=== PATIENT | male | born 1980 | race African-American/Black ===

== ENCOUNTER 2018-12-19 04:23 | Emergency (ER) | payer MEDICAID ==
[~2018-12-19] VITALS: Ht 182.9 cm; Wt 84.8 kg
[2018-12-19] MEDS ORDERED: GABAPENTIN100 MG ORAL (04:34)
--- NOTE | 2018-12-19 04:37 | NUR ---
ED Nurse Note: pt walked in to ED C/O fluid filled scattered blister to his right torso area. it has been going on for 4 days. Pt is Alert x4. VSS
[2018-12-19 04:38] VITALS: BP 112/75
[2018-12-19] MEDS ORDERED: VALACYCLOVIR500 MG ORAL (04:41)
[2018-12-19] MEDS ORDERED: NORCO 5-325 TA1 EACH ORAL (04:41)
--- NOTE | 2018-12-19 04:41 | Emergency Room Report ---
History of Present Illness General Chief Complaint: shingles Source: Patient Present Illness HPI 38-year-old male history of HIV CD4 greater than 600 presents with rash right lower back right abdomen, follows dermatomal pattern, no aggravating relieving factors severity is severe, constant Allergies: Coded Allergies: No Known Allergies (Unverified , 12/19/18) Patient History Past Medical History: see triage record Reviewed Nursing Documentation: PMH: Agreed; PSxH: Agreed Review of Systems All Other Systems: negative except mentioned in HPI Physical Exam General Appearance: well appearing, no apparent distress Head: normocephalic, atraumatic ENT: hearing grossly normal, normal voice Neck: full range of motion, supple Respiratory: no respiratory distress, speaking full sentences Neurologic: alert, normal gait Skin: rash - T10 dermatome right side, vesicular rash present Medical Decision Making Diagnostic Impression: Primary Impression: Shingles Qualified Codes: B02.9 - Zoster without complications ER Course Patient with shingles will provide patient with Valtrex cures report ran Disposition home with return precautions Disposition: HOME, SELF-CARE Condition: Stable Scripts Hydrocodone Bit/Acetaminophen 5-325* (NORCO 5-325*) 1 Each Tablet 1 TAB ORAL Q6H PRN for For Pain, #12 TAB 0 Refills Prov: Theron Waldrop MD 12/19/18 Valacyclovir Hcl* (VALTREX*) 500 Mg Tablet 1000 MG ORAL Q8H for 7 Days, #42 TAB Prov: Theron Waldrop MD 12/19/18 Referrals: [facility] Patient Instructions: Shingles, [id number] Additional Instructions: The patient was provided with discharge instructions, notified to follow-up with a primary care doctor and or specialist in the next 24-48 hours, and to return to the ED if they have worsening of their symptoms. Please note that this report is being documented using [employer] technology. This can lead to erroneous entry secondary to incorrect interpretation by the dictating instrument. Theron Waldrop MD Dec 19, 2018 04:41
[2018-12-19] MEDS ORDERED: HYDROcodone/Acetamin 5/325 tab ORAL ONE (04:45)
[2018-12-19 04:49] VITALS: BP 112/70
== END 2018-12-19 04:49 | disposition home or self-care (01) ==
LOC: EMR 04:30
DX: B02.9 Zoster without complications (principal)
CPT/HCPCS: 99282

== ENCOUNTER 2018-12-23 04:05 | Emergency (ER) | payer MEDICAID ==
[~2018-12-23] VITALS: Ht 175.3 cm; Wt 84.8 kg
[~2018-12-23 04:05] MED LIST: GABAPENTIN100 MG ORAL; NORCO 5-325 TA1 EACH ORAL; VALACYCLOVIR500 MG ORAL
--- NOTE | 2018-12-23 04:10 | NUR ---
ED Nurse Note: Patient presents with complaints of shingles, occurring at his right side and back.
[2018-12-23 04:24] VITALS: BP 104/67
[2018-12-23] MEDS ORDERED: HYDROmorphone 1mg/ml Carpuject IM ONE (04:30)
[2018-12-23] MEDS ORDERED: BACTRIM DS TAB1 EAC1 ORAL (04:33)
[2018-12-23] MEDS ORDERED: GABAPENTIN300 MG ORAL (04:33)
[2018-12-23] MEDS ORDERED: PERCOCET 5-3251 EACH ORAL (04:33)
--- NOTE | 2018-12-23 04:34 | Emergency Room Report ---
History of Present Illness General Chief Complaint: Pain Source: Patient Present Illness HPI This is a 38-year-old male with history of HIV. CD4 count is around 600. Viral load was undetectable. He was seen here couple days ago with shingles. He was given [place] and Valtrex. He said the last 2 days he is been having pain. Subjective fever. Unable to sleep because of the pain. Out of [place]. Pain is 9 out of 10. His rashes to the right aspect of his back and to the chest area. No nausea no vomiting. Pain is 9 out of 10. Nothing made it better. Nothing made it worse. Denies any other complaint. Allergies: Coded Allergies: No Known Allergies (Unverified , 12/19/18) Patient History Past Medical History: see triage record, old chart reviewed, HIV Past Surgical History: other Pertinent Family History: none Social History: Denies: smoking Immunizations: other Reviewed Nursing Documentation: PMH: Agreed; PSxH: Agreed Nursing Documentation-PMH Past Medical History: No History, Except For Hx Asthma: Yes Review of Systems Eye: Denies: eye pain, blurred vision ENT: Denies: ear pain, nose congestion, throat swelling Respiratory: Denies: cough, shortness of breath Cardiovascular: Denies: chest pain, palpitations Gastrointestinal: Denies: abdominal pain, diarrhea, nausea, vomiting Musculoskeletal: Denies: back pain, joint pain Skin: Reports: rash Neurological: Denies: headache, numbness Endocrine: Denies: increased thirst, increased urine Hematologic/Lymphatic: Denies: easy bruising All Other Systems: negative except mentioned in HPI Physical Exam Vital Signs Date Time Temp Pulse Resp B/P (MAP) Pulse Ox O2 Delivery O2 Flow Rate FiO2 12/23/18 04:10 98.2 110 18 104/67 (79) 92 Room Air Vitals with tachycardia Sp02 EP Interpretation: reviewed, normal General Appearance: well appearing, no apparent distress, alert Head: normocephalic, atraumatic Eyes: bilateral eye PERRL, bilateral eye EOMI ENT: hearing grossly normal, normal pharynx Neck: full range of motion, supple, no meningismus Respiratory: chest non-tender, lungs clear, normal breath sounds Cardiovascular #1: regular rate, rhythm, no murmur Gastrointestinal: normal bowel sounds, non tender, no mass, no organomegaly, no bruit, non-distended Musculoskeletal: back normal, gait/station normal, normal range of motion Neurologic: alert, oriented x3 Psychiatric: mood/affect normal Skin: other - Vesicular lesions around the T6-T7 distribution. There is some surrounding erythema. Medical Decision Making Diagnostic Impression: Primary Impression: Shingles Qualified Codes: B02.8 - Zoster with other complications Additional Impression: Acute herpes zoster neuropathy ER Course This patient presents with shingles and neuropathy. May have secondary skin infection. We will go ahead and put him on antibiotics. No evidence of any crepitance. No evidence of necrotizing fasciitis or abscess. Will discharge home. Last Vital Signs Date Time Temp Pulse Resp B/P (MAP) Pulse Ox O2 Delivery O2 Flow Rate FiO2 12/23/18 04:24 98.2 87 18 104/67 92 Room Air Status: improved Disposition: HOME, SELF-CARE Condition: Stable Scripts Trimethoprim/Sulfamethoxazole 160/800* (BACTRIM DS TABLET*) 1 Each Tablet 1 TAB ORAL Q12H, #14 TAB 0 Refills Prov: Bennett Hagen MD 12/23/18 Gabapentin* (GABAPENTIN*) 300 Mg Capsule 300 MG ORAL THREE TIMES A DAY, #21 CAP 0 Refills Prov: Bennett Hagen MD 12/23/18 Oxycodone/Acetaminophen 5-325* (PERCOCET 5-325 MG TABLET*) 1 Each Tablet 1 TAB ORAL Q6H PRN for For Pain, #30 TAB Prov: Bennett Hagen MD 12/23/18 Additional Instructions: Follow-up with your doctor in 7 days for recheck. Return if worse. Bennett Hagen MD Dec 23, 2018 04:34
--- NOTE | 2018-12-23 04:38 | NUR ---
ED Nurse Note: Patient tolerated medication administration well. Patient cleared for discharge by ERMD. Patient is A&Ox4, has no s/s of acute distress and is ambulatory with steady gait. Patient verbalized understanding of discharge instruction and departed with all belongings. Patient will be taking an Uber home.
[2018-12-23 04:41] VITALS: BP 104/67
== END 2018-12-23 04:42 | disposition home or self-care (01) ==
LOC: EMR 04:30
DX: B02.23 Postherpetic polyneuropathy (principal); J45.909 Unspecified asthma, uncomplicated; B20 Human immunodeficiency virus [HIV] disease
CPT/HCPCS: 96372; J1170; Z7502; 99283

== ENCOUNTER 2019-02-08 23:41 | Emergency (ER) | payer MEDICAID, OTHER ==
[~2019-02-08] VITALS: Ht 175.3 cm; Wt 81.6 kg
[~2019-02-08 23:41] MED LIST changes: +BACTRIM DS TAB1 EAC1 ORAL; +GABAPENTIN300 MG ORAL; +PERCOCET 5-3251 EACH ORAL
[2019-02-09 00:10] VITALS: BP 101/69
--- NOTE | 2019-02-09 00:10 | NUR ---
ED Nurse Note: Patient walked in c/o pain from shingles on abdomen for past 2 months. Pt was seen here and got treated but now s/s return. Afebrile. No SOB. Breathing even and unlabored. VSS.
--- NOTE | 2019-02-09 00:13 | NUR ---
ED Nurse Note: ERMD at bedside.
--- NOTE | 2019-02-09 00:29 | Emergency Room Report ---
History of Present Illness General Chief Complaint: General Complaint Source: Patient Present Illness HPI Patient is a 38-year-old male presented after increased skin rash. He had prior episodes of shingles. He did have episode of shingles several months ago. This had mostly resolved however he continued to have some itchiness to the area. He reports having significant pain to the locations of previous episode. Denies any recent other locations of outbreak. He had previous been taking valacyclovir as well as gabapentin. Allergies: Coded Allergies: No Known Allergies (Unverified , 02/09/19) Patient History Past Medical History: see triage record Reviewed Nursing Documentation: PMH: Agreed; PSxH: Agreed Nursing Documentation-PMH Hx Asthma: Yes Review of Systems All Other Systems: negative except mentioned in HPI Physical Exam Vital Signs Date Time Temp Pulse Resp B/P (MAP) Pulse Ox O2 Delivery O2 Flow Rate FiO2 02/09/19 00:00 98.6 96 16 101/69 (80) 96 Room Air Sp02 EP Interpretation: reviewed, normal General Appearance: normal inspection, well appearing, no apparent distress, alert, GCS 15 Head: atraumatic ENT: normal ENT inspection, hearing grossly normal, normal voice Neck: normal inspection, full range of motion, supple, no bony tend Respiratory: normal inspection, lungs clear, normal breath sounds, no respiratory distress, no retraction, no wheezing Cardiovascular #1: regular rate, rhythm, no edema Gastrointestinal: normal inspection, normal bowel sounds, non tender, soft, no guarding, no hernia Genitourinary: no CVA tenderness Musculoskeletal: normal inspection, back normal, normal range of motion Neurologic: normal inspection, alert, responsive, speech normal Psychiatric: normal inspection, judgement/insight normal, mood/affect normal Skin: other - Mostly healed vesicular lesions with scarring to the right side of the chest wall and dermatomal distribution. There is some areas of excoriation. Medical Decision Making Diagnostic Impression: Primary Impression: Dermatitis ER Course Patient presented for skin rash. Differential diagnosis include was not limited to allergic reaction, lichen simplex chronicus, contact dermatitis among others. Patient appears to have some skin rash. He does not appear to be any acute distress.Patient appears to be stable for outpatient management. He will be given prescription for medications for antihistamines as well as oral acyclovir.He will be given a prescription for gabapentin as well. He is advised to follow-up with his infectious disease doctor for recheck.Patient advised to return if worse. Last Vital Signs Date Time Temp Pulse Resp B/P (MAP) Pulse Ox O2 Delivery O2 Flow Rate FiO2 02/09/19 00:10 96 16 Room Air 02/09/19 00:10 98.6 101/69 96 Status: improved Disposition: HOME, SELF-CARE Condition: Stable Scripts Gabapentin* (GABAPENTIN*) 300 Mg Capsule 300 MG ORAL THREE TIMES A DAY, #30 CAP 0 Refills Prov: Quoc Terry MD 02/09/19 Hydroxyzine HCl (Hydroxyzine HCl) 25 Mg Tablet 25 MG ORAL FOUR TIMES A DAY, #30 TAB Prov: Quoc Terry MD 02/09/19 Valacyclovir Hcl* (VALTREX*) 500 Mg Tablet 1000 MG ORAL EVERY 8 HOURS, #42 TAB Prov: Quoc Terry MD 02/09/19 Quoc Terry MD Feb 09, 2019 00:29
[2019-02-09] MEDS ORDERED: VALACYCLOVIR500 MG ORAL (00:32)
[2019-02-09] MEDS ORDERED: ATARAX25 MG ORAL (00:32)
[2019-02-09] MEDS ORDERED: GABAPENTIN300 MG ORAL (00:32)
[2019-02-09 00:43] VITALS: BP 101/69
--- NOTE | 2019-02-09 00:43 | NUR ---
ED Nurse Note: Pt cleared by ERMD for discharge. DC instructions/prescription was given and explained to pt and verbalized understanding of teachings. All medical deviecs such as ID band removed. Pt is AAO x4, ambulatory and left with all personal belongings.
== END 2019-02-09 00:43 | disposition home or self-care (01) ==
LOC: EMR 02-09 00:30
DX: L30.9 Dermatitis, unspecified (principal)
CPT/HCPCS: 99282

== ENCOUNTER 2019-06-01 11:56 | Emergency (ER) | payer OTHER ==
[~2019-06-01] VITALS: Ht 175.3 cm; Wt 77.1 kg
[~2019-06-01 11:56] MED LIST changes: +ATARAX25 MG ORAL
--- NOTE | 2019-06-01 12:17 | NUR ---
ED Nurse Note: Pt has had "bone pain" 10/10 in general body. Pt states he also has cough, congestion, sore throat x2 months. Pt lungs are clear to auscultation. Pt has history of asthma. Pt also has pelvic rash for 3 months in perineal area. Pt is alert and orientedx4, ambulatory. Pt was born with HIV.
[2019-06-01 12:22] VITALS: BP 132/80
--- NOTE | 2019-06-01 12:46 | Emergency Room Report ---
History of Present Illness General Chief Complaint: General Complaint Source: Patient (Galdino Cagle MD) Present Illness HPI Disclaimer: Please note that this report is being documented using [employer] technology. This can lead to erroneous entry secondary to incorrect interpretation by the dictating instrument. HPI: Male with history of HIV since presents for evaluation of multiple complaints. First, he is complaining of a rash around his penis for approximately 3 months. He notes a thick purulent drainage and difficulty retracting his foreskin. Reports burning with urination. Denies, urgency, frequency or hematuria. Denies pain in the testicles. Has not taken any medication for this rash no longer follows up with her PMD. His second issue is that he has been without retrovirals for approximately 7 months. He was incarcerated for some time and after which she was sent to a short-term clinic but they are no longer seeing him. He is requesting refills of his retroviral medications. Third, he is complaining of a chronic cough of 2 to 3 months duration. Intermittently says will bring up some phlegm but denies any fevers, chills or chest pain. Cough is persistent. Denies any alcohol drug or tobacco use. Lastly, he is complaining of approximately 2 months ulcerative lesions in his mouth. PMH: HIV PSH: Reviewed Allergies: None reported Social Hx: Denies alcohol, tobacco or drug use (Galdino Cagle MD) Allergies: Coded Allergies: No Known Allergies (Unverified , 02/09/19) Nursing Documentation-PMH Hx Cardiac Problems: No - HIV + Hx Asthma: Yes (Galdino Cagle MD) Review of Systems All Other Systems: negative except mentioned in HPI (Galdino Cagle MD) Physical Exam Vital Signs Date Time Temp Pulse Resp B/P (MAP) Pulse Ox O2 Delivery O2 Flow Rate FiO2 06/01/19 12:03 98.8 100 18 131/82 (98) 98 Room Air 06/01/19 12:22 99 General: Awake and alert, no acute distress HEENT: NC/AT. EOMI. Cardiovascular: RRR. S1 and S2 normal. No murmur appreciated Resp: Normal work of breathing. No cough, wheezing or crackles appreciated Abdomen: Abdomen is soft, nondistended. Nontender : Uncircumcised male. Difficulty retracting treating foreskin past glans. There is a white thick discharge around the glans. No obvious vesicles, ulcerations or other skin changes appreciated. Skin: Intact. No abrasions, laceration or rash over the exposed skin MSK: Normal tone and bulk. Moving all extremities. No obvious deformity. Neuro: Awake and alert. Mentating appropriately. (Galdino Cagle MD) Medical Decision Making Diagnostic Impression: Primary Impression: Candidal balanoposthitis Additional Impressions: Leukopenia Qualified Codes: D72.819 - Decreased white blood cell count, unspecified Neutropenia Qualified Codes: D70.9 - Neutropenia, unspecified HIV (human immunodeficiency virus infection) Qualified Codes: B20 - Human immunodeficiency virus [HIV] disease Noncompliance with medication regimen Oral ulceration ER Course This a 38-year-old male with history of HIV not currently on entry retrovirals presents for evaluation of multiple conditions including skin lesion in his oral mucosa, skillet lesion on his penis, chronic cough and requesting a medication refill. Regarding the skin lesion over his penis concern for balanoposthitis likely from a candidal infection judging by appearance. He has also noting urinary symptoms and will obtain a urinalysis. Will check screening labs and obtain chest x-ray given his persistent cough upper concern for other opportunistic infections. He arrives afebrile. Unknown last CD4 viral load. Laboratory Tests Test 06/01/19 12:40 White Blood Count 1.6 K/UL (4.8-10.8) *L Red Blood Count 4.71 M/UL (4.70-6.10) Hemoglobin 12.5 G/DL (14.2-18.0) L Hematocrit 37.7 % (42.0-52.0) L Mean Corpuscular Volume 80 FL (80-99) Mean Corpuscular Hemoglobin 26.6 PG (27.0-31.0) L Mean Corpuscular Hemoglobin Concent 33.2 G/DL (32.0-36.0) Red Cell Distribution Width 13.1 % (11.6-14.8) Platelet Count 257 K/UL (150-450) Mean Platelet Volume 5.7 FL (6.5-10.1) L Neutrophils (%) (Auto) % (45.0-75.0) Lymphocytes (%) (Auto) % (20.0-45.0) Monocytes (%) (Auto) % (1.0-10.0) Eosinophils (%) (Auto) % (0.0-3.0) Basophils (%) (Auto) % (0.0-2.0) Differential Total Cells Counted 100 Neutrophils % (Manual) 62 % (45-75) Lymphocytes % (Manual) 25 % (20-45) Monocytes % (Manual) 13 % (1-10) H Eosinophils % (Manual) 0 % (0-3) Basophils % (Manual) 0 % (0-2) Band Neutrophils 0 % (0-8) Platelet Estimate Adequate Platelet Morphology Normal Hypochromasia 1+ Sodium Level 139 MMOL/L (136-145) Potassium Level 3.5 MMOL/L (3.5-5.1) Chloride Level 101 MMOL/L (98-107) Carbon Dioxide Level 29 MMOL/L (21-32) Anion Gap 9 mmol/L (5-15) Blood Urea Nitrogen 8 mg/dL (7-18) Creatinine 0.7 MG/DL (0.55-1.30) Estimate Glomerular Filtration Rate > 60 mL/min (>60) Glucose Level 111 MG/DL (74-106) H Calcium Level 8.8 MG/DL (8.5-10.1) (Galdino Cagle MD) ER Course Please see above note. Patient is insisting on leaving and not being admitted to the hospital. Risk of from infection discussed with patient. Patient states he has to go to work or he will lose his job. I invited him to return when he is able. Diflucan was given orally. He requested a prescription. I told him we would consider that when he returns. (Kranthi Espinosa MD) Last Vital Signs Date Time Temp Pulse Resp B/P (MAP) Pulse Ox O2 Delivery O2 Flow Rate FiO2 06/01/19 12:22 100 16 Room Air 99 06/01/19 12:22 98.8 132/80 99 (Galdino Cagle MD) Last Vital Signs Date Time Temp Pulse Resp B/P (MAP) Pulse Ox O2 Delivery O2 Flow Rate FiO2 06/01/19 15:40 98.8 88 20 121/71 99 Room Air 06/01/19 12:22 99 Status: improved (Kranthi Espinosa MD) Disposition: AGAINST MEDICAL ADVICE Condition: Serious Referrals: NOT CHOSEN [facility]/,REFERRING (PCP) Galdino Cagle MD Jun 01, 2019 12:46 Kranthi Espinosa MD Jun 01, 2019 16:00
--- NOTE | 2019-06-01 12:49 | NUR ---
ED Nurse Note: aware that pt refusing to urinate for labs.
[2019-06-01] MEDS ORDERED: Ketorolac 30mg Inj IV ONE (13:00)
[2019-06-01] MEDS ORDERED: Methocarbamol 750mg tab ORAL ONE (13:00)
[2019-06-01 13:09] LABS: HEMATOCRIT 37.7 % (42.0-52.0); HEMOGLOBIN 12.5 G/DL (14.2-18.0); MEAN CORPUSCULAR VOLUME 80 FL (80-99); PLATELET COUNT 257 K/UL (150-450); RED BLOOD COUNT 4.71 M/UL (4.70-6.10); RED CELL DISTRIBUTION WIDTH 13.1 % (11.6-14.8); WHITE BLOOD COUNT 1.6 K/UL (4.8-10.8)
--- NOTE | 2019-06-01 13:18 | Diagnostic Imaging Report ---
EXAM: XR Chest, 1 View CLINICAL HISTORY: COUGH TECHNIQUE: Frontal view of the chest. COMPARISON: No relevant prior studies available. FINDINGS: Lungs: No consolidation. Pleural space: Unremarkable. No pneumothorax. Heart: Unremarkable. No cardiomegaly. Mediastinum: Unremarkable. Bones/joints: No acute fracture. IMPRESSION: No confluent consolidation.
[2019-06-01 13:20] LABS: ANION GAP 9 mmol/L (5-15); BLOOD UREA NITROGEN 8 mg/dL (7-18); CALCIUM 8.8 MG/DL (8.5-10.1); CARBON DIOXIDE 29 MMOL/L (21-32); CHLORIDE 101 MMOL/L (98-107); CREATININE 0.7 MG/DL (0.55-1.30); POTASSIUM 3.5 MMOL/L (3.5-5.1); SODIUM 139 MMOL/L (136-145)
[2019-06-01 15:06] VITALS: BP 126/77
[2019-06-01] MEDS ORDERED: Fluconazole 150mg tab ORAL ONE (15:15)
[2019-06-01 15:40] VITALS: BP 121/71
--- NOTE | 2019-06-01 15:40 | NUR ---
AMA: SEE AMA FORM. Pt filled out and signed AMA form. Pt has been informed of risks by Dr Espinosa. Pt is alert and orientedx4, ambulatory. IV removed w/out complications. Pt states he has to go to work and can't stay overnight and is leaving AMA. He states he has to leave no for work or will be fired from job. YASMIN Sierra notified.
== END 2019-06-01 15:40 | disposition left against medical advice (07) ==
LOC: EMR 12:30 → EDBEDREQ 14:27 → CANBEDREQ 15:40 → EMR 15:40
DX: N47.6 Balanoposthitis (principal); D72.819 Decreased white blood cell count, unspecified; D70.9 Neutropenia, unspecified; B20 Human immunodeficiency virus [HIV] disease; Z91.14 Patient's other noncompliance with medication regimen; K13.70 Unspecified lesions of oral mucosa; R05 Cough
CPT/HCPCS: 36415; 71045; 80048; 85007; 85025; J1885; Z7502; 99284

== ENCOUNTER 2019-06-04 20:49 | Inpatient (IN) | payer OTHER ==
[~2019-06-04] VITALS: Ht 175.3 cm; Wt 63.6 kg
--- NOTE | 2019-06-04 21:10 | NUR ---
ED Nurse Note: ambulated to ed c/o mouth sores and genital sores. reports body ache 01/03. hiv+; noncompliant with antivirals x 7 months. was recently seen at [facility] [place] same reason 4 days ago. plan was to be admitted but left ama. patient [id number]. changed into gown; attached to monitor; safety measures met.
--- NOTE | 2019-06-04 21:30 | NUR ---
ED Nurse Note: iv access established. blood, urine, initial lactic, blood culture, flu swab, mrsa swab collected; sent down to lab. pt refused vre cre swab.
[2019-06-04 21:34] VITALS: BP 107/73
--- NOTE | 2019-06-04 21:38 | Emergency Room Report ---
History of Present Illness General Chief Complaint: Pain Source: Patient Present Illness [facility] This a 38-year-old male who has a history of HIV but been noncompliant with his medication for over 7 months. Has been off of it. Does not know his CD4 count or viral load. He presents with 2 months history of coughing and congestion. With body pain and subjective fever. Also has ulceration to his mouth and penile area. Pain is 9 out of 10. Nothing made it better. Nothing made it worse. He was here few days ago. Lab work showed a very low white count. He was recommended for admission but he refused because of work. He was discharged without any medication. Allergies: Coded Allergies: No Known Allergies (Unverified , 02/09/19) Patient History Past Medical History: see triage record, old chart reviewed, HIV Past Surgical History: none Pertinent Family History: none Immunizations: other Reviewed Nursing Documentation: PMH: Agreed; PSxH: Agreed Nursing Documentation-PMH Past Medical History: No History, Except For Hx Cardiac Problems: No - HIV + Hx Asthma: Yes Review of Systems Constitutional: Reports: fever, malaise, weakness Eye: Denies: eye pain, blurred vision ENT: Denies: ear pain, nose congestion, throat swelling Respiratory: Reports: cough, shortness of breath Cardiovascular: Denies: chest pain, palpitations Gastrointestinal: Denies: abdominal pain, diarrhea, nausea, vomiting Musculoskeletal: Denies: back pain, joint pain Skin: Denies: rash Neurological: Denies: headache, numbness Endocrine: Denies: increased thirst, increased urine Hematologic/Lymphatic: Denies: easy bruising All Other Systems: negative except mentioned in HPI Physical Exam Vital Signs Date Time Temp Pulse Resp B/P (MAP) Pulse Ox O2 Delivery O2 Flow Rate FiO2 06/04/19 21:04 98.8 95 18 107/73 (84) 98 Room Air Vitals normal Sp02 EP Interpretation: reviewed, normal General Appearance: no apparent distress, alert, thin Head: normocephalic, atraumatic Eyes: bilateral eye PERRL, bilateral eye EOMI ENT: hearing grossly normal, normal pharynx, other - Aphthous ulcers and ulceration to the bucca mucosa Neck: full range of motion, supple, no meningismus Respiratory: chest non-tender, lungs clear, normal breath sounds Cardiovascular #1: regular rate, rhythm, no murmur Gastrointestinal: normal bowel sounds, non tender, no mass, no organomegaly, no bruit, non-distended Genitourinary: other - Patient is uncircumcised. He has ulceration and whitish discharge on the foreskin and glans. Musculoskeletal: back normal, normal range of motion, gait/station normal Psychiatric: mood/affect normal Medical Decision Making Diagnostic Impression: Primary Impression: AIDS (acquired immune deficiency syndrome) Additional Impressions: CAP (community acquired pneumonia) Qualified Codes: J18.9 - Pneumonia, unspecified organism Noncompliance with medication regimen Candidal balanoposthitis Leukopenia Qualified Codes: D72.819 - Decreased white blood cell count, unspecified Oral ulceration ER Course Patient presents with cough shortness of breath and subjective fever. Also is noncompliant with his HIV medication. He was mildly hypoxic. LDH is slightly elevated. I was concerned for possible PCP pneumonia. Patient was given antibiotics and also Bactrim here. He does have evidence of fungal infection. Diflucan given. He will be admitted for further work-up. I discussed the case with Dr. Zavaleat is covering for Dr. Hanson. Rhythm Strip Diag. Results EP Interpretation: yes Rate: 100 Rhythm: NSR, no PVC's, no ectopy Chest X-Ray Diagnostic Results Chest X-Ray Diagnostic Results : Chest X-Ray Ordered: Yes # of Views/Limited/Complete: 1 View Indication: Shortness of Breath EP Interpretation: Yes Interpretation: no effusion, no pneumothorax, other - b/l infiltrates Impression: Other - b/l infiltrates Electronically Signed by: Bennett Hagen MD Last Vital Signs Date Time Temp Pulse Resp B/P (MAP) Pulse Ox O2 Delivery O2 Flow Rate FiO2 06/04/19 21:34 98.8 95 18 107/73 98 Room Air Status: improved Disposition: ADMITTED INPATIENT Condition: Serious Referrals: OWEN MCCALL,REFERRING (PCP) Bennett Hagen MD Jun 04, 2019 21:38
[2019-06-04] MEDS ORDERED: Albuterol ud Inhalation HHN ONE (21:45)
[2019-06-04] MEDS ORDERED: Solu-MEDROL 125mg Inj IVP ONE (21:45)
--- NOTE | 2019-06-04 21:50 | NUR ---
ED Nurse Note: rt at bedside for breathing tx
[2019-06-04 21:54] LABS: APPEARANCE,URINE CLEAR; BILIRUBIN, URINE NEGATIVE (NEGATIVE); COLOR,URINE AMBER; GLUCOSE, URINE (UA) NEGATIVE (NEGATIVE); KETONES,URINE NEGATIVE (NEGATIVE); LEUKOCYTE ESTERASE ,URINE 1+ (NEGATIVE); NITRITE,URINE NEGATIVE (NEGATIVE); PH,URINE 5 (4.5-8.0); PROTEIN,URINE 2+ (NEGATIVE); UROBILINOGEN,URINE 1 MG/DL (0.0-1.0)
[2019-06-04 22:00] VITALS: BP 98/61
[2019-06-04 22:02] LABS: HEMATOCRIT 42.5 % (42.0-52.0); HEMOGLOBIN 13.6 G/DL (14.2-18.0); MEAN CORPUSCULAR VOLUME 82 FL (80-99); PLATELET COUNT 265 K/UL (150-450); RED BLOOD COUNT 5.16 M/UL (4.70-6.10); RED CELL DISTRIBUTION WIDTH 14.4 % (11.6-14.8)
[2019-06-04 22:05] LABS: WHITE BLOOD COUNT 1.4 K/UL (4.8-10.8)
[2019-06-04 22:25] LABS: ANION GAP 8 mmol/L (5-15); BLOOD UREA NITROGEN 6 mg/dL (7-18); CALCIUM 8.9 MG/DL (8.5-10.1); CARBON DIOXIDE 32 MMOL/L (21-32); CHLORIDE 104 MMOL/L (98-107); CREATININE 0.9 MG/DL (0.55-1.30); POTASSIUM 3.7 MMOL/L (3.5-5.1); SODIUM 144 MMOL/L (136-145)
[2019-06-04 22:33] LABS: ALANINE AMINOTRANSFERASE 17 U/L (12-78); ALBUMIN 2.6 G/DL (3.4-5.0); ALBUMIN/GLOBULIN RATIO 0.4 (1.0-2.7); ALKALINE PHOSPHATASE 94 U/L (46-116); ASPARTATE AMINO TRANSFERASE 15 U/L (15-37); BILIRUBIN,TOTAL 0.2 MG/DL (0.2-1.0)
--- NOTE | 2019-06-04 22:59 | NUR ---
ED Nurse Note: upon integumentary assessment no pressure ulcers noted. pt refused assessment of genitals and posterior. healed abcesses noted on chest and lower abdomen. bilateral feet very dry and flaky but otherwise intact. patient denies presence of pressure ulcers.
[2019-06-04] MEDS ORDERED: Azithromycin 500 MG in NS 275 ML IV ONE (23:30)
[2019-06-04] MEDS ORDERED: cefTRIAXone 1 GM in NS 55 ML IVPB ONE (23:30)
[2019-06-04] MEDS ORDERED: Fluconazole 100mg tab ORAL ONE (23:30)
[2019-06-04] MEDS ORDERED: Bactrim-DS 1 tab ORAL ONE (23:30)
--- NOTE | 2019-06-05 00:14 | NUR ---
TRANSFER TO FLOOR: Patient transferred to [facility] 421-1 as ordered, per md kristen. Report given to tex richards. patient stable for transfer. pt transported to unit via gurney with facility attendant. belongings and admission packet sent with patient.
[2019-06-05 00:30] VITALS: BP 102/67
[2019-06-05] MEDS ORDERED: PERCOCET 10-321 EAC1 ORAL (00:54)
[2019-06-05] MEDS ORDERED: DAPSONE25 MG ORAL (00:56)
[2019-06-05] MEDS ORDERED: TIVICAY50 MG ORAL (00:59)
--- NOTE | 2019-06-05 01:03 | NUR ---
NURSE NOTES: Patient in 421-1. Patient is awake, alert x 4. Able to make needs known. Respiration is even, nasal cannula 2 L sat 96% at the moment. Slight generalized pain 6/10. Skin is warm and dry to touch. IV site noted. All belongings with patient. Patient gait is normal. Oriented patient to the room, patient able to demonstrate the use of call light. Contacted MD for admission orders.
[2019-06-05] MEDS ORDERED: Albuterol/Ipratropium 3ml neb HHN SCH (01:30)
[2019-06-05] MEDS ORDERED: Bactrim-DS 1 tab ORAL SCH ×2 (01:30→09:00)
[2019-06-05] MEDS ORDERED: Albuterol/Ipratropium 3ml neb HHN PRN (02:00)
[2019-06-05 04:00] VITALS: BP 132/72
[2019-06-05 06:24] LABS: HEMATOCRIT 35.8 % (42.0-52.0); MEAN CORPUSCULAR VOLUME 81 FL (80-99); PLATELET COUNT 251 K/UL (150-450); RED BLOOD COUNT 4.45 M/UL (4.70-6.10); RED CELL DISTRIBUTION WIDTH 12.5 % (11.6-14.8)
[2019-06-05 06:29] LABS: WHITE BLOOD COUNT 1.9 K/UL (4.8-10.8)
--- NOTE | 2019-06-05 06:30 | NUR ---
Charge Nurse NOTE: Chemistry lab called informing that patient's WBC is critically low (1.9) which is an improvement from previous draw (1.4), informed Primary nurse ARACELI Starr to notify doctor.
[2019-06-05 06:44] LABS: ALANINE AMINOTRANSFERASE 22 U/L (12-78); ALBUMIN 2.4 G/DL (3.4-5.0); ALBUMIN/GLOBULIN RATIO 0.4 (1.0-2.7); ALKALINE PHOSPHATASE 87 U/L (46-116); ANION GAP 13 mmol/L (5-15); ASPARTATE AMINO TRANSFERASE 15 U/L (15-37); BILIRUBIN,TOTAL 0.2 MG/DL (0.2-1.0); BLOOD UREA NITROGEN 9 mg/dL (7-18); CALCIUM 8.8 MG/DL (8.5-10.1); CARBON DIOXIDE 23 MMOL/L (21-32); CHLORIDE 106 MMOL/L (98-107); CREATININE 0.9 MG/DL (0.55-1.30); POTASSIUM 4.1 MMOL/L (3.5-5.1); SODIUM 142 MMOL/L (136-145)
--- NOTE | 2019-06-05 07:20 | NUR ---
NURSE NOTES: Handoff received from ARACELI Starr. Patient received awake and alert and able to make needs known, patient is on room air, no acute signs of distress noted. Patient is alert and oriented to person, time place and situation. IV site is clean dry and intact, Patient bed in the low and locked position, call light within reach, will continue to monitor patient.
[2019-06-05 08:00] VITALS: BP 120/70
[2019-06-05] MEDS ORDERED: Dolutegravir Sodium 50mg tab ORAL SCH (09:00)
[2019-06-05] MEDS ORDERED: DAPSONE 25 MG ORAL SCH (09:00)
[2019-06-05] MEDS: valACYclovir HCL 500mg tab ORAL SCH ×2 (09:44→22:05)
--- NOTE | 2019-06-05 10:18 | History and Physical ---
History of Present Illness General Date patient seen: Jun 05, 2019 Time patient seen: 07:40 Reason for Hospitalization: Pain Present Illness HPI 38-year-old male who has a history of asthma, HIV off anti-retrovirals x 7 months because he does not have a PCP, unknown CD4 count who presented to ED with 2 month history of coughing and congestion with scant clear sputum. + Exertional dyspnea which is new. Denies fever, myalgia, arthralgia, diarrhea. + 40 lb weight loss due to poor appetite, smoking cannabis for appetite stimulation. In ED he had a negative influenza swab and CXR, leukopenia noted. Started on azithromycin, ceftriaxone, and Bactrim and referred for admission. Family History: No premature CAD Social History: + Tobacco and marijuana use Allergies: Coded Allergies: No Known Allergies (Unverified , 02/09/19) Medication History Scheduled Dapsone* (Dapsone*), 25 MG ORAL DAILY, (Reported) Dolutegravir Sodium (Tivicay), 50 MG ORAL DAILY, (Reported) Gabapentin* (Gabapentin*), 300 MG ORAL THREE TIMES A DAY Hydroxyzine HCl (Hydroxyzine HCl), 25 MG ORAL FOUR TIMES A DAY Trimethoprim/Sulfamethoxazole 160/800* (Bactrim Ds Tablet*), 1 TAB ORAL Q12H Valacyclovir Hcl* (Valtrex*), 1,000 MG ORAL EVERY 8 HOURS Scheduled PRN Oxycodone HCl/Acetaminophen (Percocet 10-325 mg Tablet), 1 TAB ORAL Q4H PRN for For Pain, (Reported) Discontinued Medications Gabapentin* (Gabapentin*), 300 MG ORAL THREE TIMES A DAY Discontinued Reason: MD discontinued med Oxycodone/Acetaminophen 5-325* (Percocet 5-325 Mg Tablet*), 1 TAB ORAL Q6H PRN for For Pain Discontinued Reason: Pt stopped taking med Valacyclovir Hcl* (Valtrex*), 1,000 MG ORAL Q8H Discontinued Reason: Medication dose changed Patient History Healthcare decision maker Resuscitation status Advanced Directive on File Review of Systems Constitutional: Denies: chills, fever Eye: Denies: eye pain, blurred vision Respiratory: Reports: cough, shortness of breath; Denies: orthopnea, wheezing Cardiovascular: Denies: chest pain, edema, palpitations Gastrointestinal: Denies: abdominal pain, constipation, diarrhea Genitourinary: Denies: discharge, dysuria Musculoskeletal: Denies: back pain, gout Skin: Denies: rash, change in color Neurological: Denies: headache Hematologic/Lymphatic: Denies: anemia Physical Exam General Appearance: no apparent distress, alert HEENT: atraumatic, anicteric Neck: normal alignment, supple, normal inspection Respiratory/Chest: lungs clear, normal breath sounds, no respiratory distress, no accessory muscle use Cardiovascular/Chest: normal rate, regular rhythm Abdomen: non tender, soft, no organomegaly, no mass Extremities: non-tender, normal inspection, no calf tenderness 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, no motor/sensory deficits, alert, oriented x 3 Last 24 Hour Vital Signs Date Time Temp Pulse Resp B/P (MAP) Pulse Ox O2 Delivery O2 Flow Rate FiO2 06/05/19 08:07 80 16 98 Nasal Cannula 28 06/05/19 04:00 97.3 84 18 132/72 (92) 95 06/05/19 01:06 Nasal Cannula 2.0 06/05/19 00:30 98.0 86 18 102/67 (79) 95 06/05/19 00:16 98.8 89 19 98/61 98 Nasal Cannula 2.0 06/04/19 22:09 96 20 98 06/04/19 22:00 98.8 89 19 98/61 98 Nasal Cannula 2.0 06/04/19 21:51 92 19 98 Room Air 06/04/19 21:34 98.8 95 18 107/73 98 Room Air 06/04/19 21:04 98.8 95 18 107/73 (84) 98 Room Air Intake and Output 06/04/19 06/05/19 19:00 07:00 Intake Total 360 ml Balance 360 ml Intake Other 360 ml # Voids 1 Laboratory Tests Test 06/04/19 21:30 06/05/19 05:45 White Blood Count 1.4 K/UL (4.8-10.8) *L Pending Red Blood Count 5.16 M/UL (4.70-6.10) 4.45 M/UL (4.70-6.10) L Hemoglobin 13.6 G/DL (14.2-18.0) L 12.0 G/DL (14.2-18.0) L Hematocrit 42.5 % (42.0-52.0) 35.8 % (42.0-52.0) L Mean Corpuscular Volume 82 FL (80-99) 81 FL (80-99) Mean Corpuscular Hemoglobin 26.3 PG (27.0-31.0) L 26.9 PG (27.0-31.0) L Mean Corpuscular Hemoglobin Concent 31.9 G/DL (32.0-36.0) L 33.5 G/DL (32.0-36.0) Red Cell Distribution Width 14.4 % (11.6-14.8) 12.5 % (11.6-14.8) Platelet Count 265 K/UL (150-450) 251 K/UL (150-450) Mean Platelet Volume 6.1 FL (6.5-10.1) L 5.5 FL (6.5-10.1) L Neutrophils (%) (Auto) % (45.0-75.0) % (45.0-75.0) Lymphocytes (%) (Auto) % (20.0-45.0) % (20.0-45.0) Monocytes (%) (Auto) % (1.0-10.0) % (1.0-10.0) Eosinophils (%) (Auto) % (0.0-3.0) % (0.0-3.0) Basophils (%) (Auto) % (0.0-2.0) % (0.0-2.0) Differential Total Cells Counted 100 100 Neutrophils % (Manual) 55 % (45-75) 71 % (45-75) Lymphocytes % (Manual) 22 % (20-45) 12 % (20-45) L Monocytes % (Manual) 15 % (1-10) H 7 % (1-10) Eosinophils % (Manual) 3 % (0-3) 0 % (0-3) Basophils % (Manual) 0 % (0-2) 0 % (0-2) Band Neutrophils 5 % (0-8) 10 % (0-8) H Platelet Estimate Adequate Adequate Platelet Morphology Normal Normal Red Blood Cell Morphology Normal Urine Color [place] Urine Appearance Clear Urine pH 5 (4.5-8.0) Urine Specific [place] 1.020 (1.005-1.035) Urine Protein 2+ (NEGATIVE) H Urine Glucose (UA) Negative (NEGATIVE) Urine Ketones Negative (NEGATIVE) Urine Blood Negative (NEGATIVE) Urine Nitrite Negative (NEGATIVE) Urine Bilirubin Negative (NEGATIVE) Urine Ictotest Negative (NEGATIVE) Urine Urobilinogen 1 MG/DL (0.0-1.0) H Urine Leukocyte Esterase 1+ (NEGATIVE) H Urine RBC 0-2 /HPF (0 - 0) H Urine WBC 10-15 /HPF (0 - 0) H Urine Squamous Epithelial Cells Occasional /LPF Urine Bacteria Many /HPF (NONE) H Urine Mucus Many /LPF (NONE/OCC) H Sodium Level 144 MMOL/L (136-145) 142 MMOL/L (136-145) Potassium Level 3.7 MMOL/L (3.5-5.1) 4.1 MMOL/L (3.5-5.1) Chloride Level 104 MMOL/L (98-107) 106 MMOL/L (98-107) Carbon Dioxide Level 32 MMOL/L (21-32) 23 MMOL/L (21-32) Anion Gap 8 mmol/L (5-15) 13 mmol/L (5-15) Blood Urea Nitrogen 6 mg/dL (7-18) L 9 mg/dL (7-18) Creatinine 0.9 MG/DL (0.55-1.30) 0.9 MG/DL (0.55-1.30) Estimat Glomerular Filtration Rate > 60 mL/min (>60) > 60 mL/min (>60) Glucose Level 87 MG/DL (74-106) 142 MG/DL (74-106) H Lactic Acid Level 1.30 mmol/L (0.4-2.0) Calcium Level 8.9 MG/DL (8.5-10.1) 8.8 MG/DL (8.5-10.1) Total Bilirubin 0.2 MG/DL (0.2-1.0) 0.2 MG/DL (0.2-1.0) Aspartate Amino Transf (AST/SGOT) 15 U/L (15-37) 15 U/L (15-37) Alanine Aminotransferase (ALT/SGPT) 17 U/L (12-78) 22 U/L (12-78) Alkaline Phosphatase 94 U/L (46-116) 87 U/L (46-116) Lactate Dehydrogenase 301 U/L (81-234) H Total Protein 8.4 G/DL (6.4-8.2) H 8.0 G/DL (6.4-8.2) Albumin 2.6 G/DL (3.4-5.0) L 2.4 G/DL (3.4-5.0) L Globulin 5.8 g/dL 5.6 g/dL Albumin/Globulin Ratio 0.4 (1.0-2.7) L 0.4 (1.0-2.7) L Urine Opiates Screen Negative (NEGATIVE) Urine Barbiturates Screen Negative (NEGATIVE) Phencyclidine (PCP) Screen Negative (NEGATIVE) Urine Amphetamines Screen Negative (NEGATIVE) Urine Benzodiazepines Screen Negative (NEGATIVE) Urine Cocaine Screen Negative (NEGATIVE) Urine Marijuana (THC) Screen Positive (NEGATIVE) H Lymphocytes Pending Hypochromasia 1+ Percent CD3 Cells Pending Absolute CD3 Count Pending Percent CD4 Cells Pending Absolute CD4 Count Pending T-Lymphocyte CD4/CD8 Ratio Pending Percent CD8 Cells Pending Absolute CD8 Count Pending Microbiology Date/Time Source Procedure Growth Status 06/05/19 04:45 Nasal Nares - Final Complete 06/05/19 04:45 Nasal Nares - Final Complete 06/04/19 21:30 Nasal Nares - Final Complete 06/04/19 21:30 Nasal Nares - Final Complete Height (Feet): 5 Height (Inches): 9.00 Weight (Pounds): 140 Medications Current Medications Medications (Trade) Dose Ordered Sig/[place] Route PRN Reason Start Time Stop Time Status Last Admin Dose Admin Albuterol/ Ipratropium (Albuterol/ Ipratropium) 3 ml Q6HRT PRN HHN Shortness of Breath 06/05/19 02:00 06/10/19 01:29 Azithromycin 500 mg/Dextrose 275 ml @ 275 mls/hr Q24HRS IV 06/06/19 00:00 06/13/19 00:00 Ceftriaxone Sodium 1 gm/ Dextrose 55 ml @ 110 mls/hr Q24H IVPB 06/05/19 23:00 06/10/19 22:59 Dapsone (Dapsone) 25 mg DAILY ORAL 06/05/19 09:00 06/12/19 08:59 06/05/19 09:43 Dolutegravir Sodium (Tivicay) 50 mg DAILY ORAL 06/05/19 09:00 07/05/19 08:59 UNV Gabapentin (Neurontin) 300 mg THREE TIMES A DAY ORAL 06/05/19 09:00 07/05/19 08:59 06/05/19 09:44 Oxycodone/ Acetaminophen (Percocet 10/325) 1 tab Q4H PRN ORAL For Pain 06/05/19 01:30 06/12/19 01:29 06/05/19 09:44 Trimethoprim/ Sulfamethoxazole (Bactrim-DS) 1 tab Q12H ORAL 06/05/19 09:00 06/12/19 23:59 06/05/19 09:49 Valacyclovir HCl (Valtrex) 1,000 mg Q12HR ORAL 06/05/19 09:00 07/05/19 08:59 06/05/19 09:44 Assessment/Plan Assessment/Plan: 38 year old man with AIDS, unknown viral load/CD4, asthma, smoker who presented to the ED with 40 lb weight loss and mostly dry cough x 2 months associated with exertional dyspnea. #Cough #Exertional dyspnea #Asthma without exacerbation #AIDS #Weight loss due to anorexia #Leukopenia -admit to medical service -check CD4 count -cont IV antibiotics for now -cont Bactrim - ? change to IV -cont Dapsone -ID consulted -will consider pulm eval -smoking cessation advised -calorie count x 24 hours -monitor CBC VTE PPx I spent 70 minutes on this patient's case, and >50% was dedicated to counseling and/or care coordination. I spent an additional 35 minutes on review of medical records including prior medical records, consult notes, progress notes, procedures, imaging, labs, hemodynamics, and other clinical documentation. Chad Alvarado MD Jun 05, 2019 10:18
[2019-06-05 12:00] VITALS: BP 118/72
--- NOTE | 2019-06-05 12:01 | NUR ---
CASE MANAGEMENT:INITIAL REVIEW 38 YR OLD MALE WALKED IN TO ED FROM HOME CC;PAIN SI;AIDS. PNA. LEUKOPENIA. ORAL ULCERATION. 98.8 95 19 98/61 95% 2L NC WBC 1.4 BUN 6 TOR PROTEIN 8.4 ALB 2.6 UA+ PROTEIN, UROBILI, LEUKOCYTE, RBC, WBC, BACTERIA, MUCUS TOX + MARIJUANA IS;IVF NS BOLUS ALBUTEROL HHN ONCE SOLU MEDROL IV ONCE ADMITTED TO MED SURG MED SURG STATUS DCP;FROM HOME
--- NOTE | 2019-06-05 15:59 | Diagnostic Imaging Report ---
Indication: Shortness of breath, chest pain Technique: One view of the chest Comparison: 06/01/2019 Findings: No definite acute infiltrates, effusions, or congestion. Normal heart size. No significant change Impression: No acute process
[2019-06-05 16:00] VITALS: BP 103/69
--- NOTE | 2019-06-05 19:26 | NUR ---
HAND-OFF: Report given to ARACELI Starr.
[2019-06-05 20:00] VITALS: BP 105/69
--- NOTE | 2019-06-05 20:28 | Infectious Diseases Prog Note ---
Assessment/Plan Assessment/Plan Full consult dictated: A) 1) hiv, aids (has been on dapsone), ? cd4, ? viral load, non-compliant 2) possible pna, ? cap, ? pjp/pneumocystis, elevated ldh, initial chest x-ray negative 3) penile lesions/rash 4) pmh noted 5) allergies - nkda P) 1) ceftriaxone, azithromycin, bactrim, diflucan 2) check sc, labs, cd4, viral load, serology 3) pulmonary evaluation, ? CT chest 4) urology evaluation 5) thank you Subjective Allergies: Coded Allergies: No Known Allergies (Unverified , 02/09/19) Objective Vital Signs Last 24 Hour Vital Signs Date Time Temp Pulse Resp B/P (MAP) Pulse Ox O2 Delivery O2 Flow Rate FiO2 06/05/19 16:00 97.7 72 20 103/69 (80) 95 06/05/19 12:00 98.1 76 17 118/72 (87) 96 06/05/19 09:00 Room Air 06/05/19 08:07 80 16 98 Nasal Cannula 28 06/05/19 08:00 97.7 68 18 120/70 (87) 98 06/05/19 04:00 97.3 84 18 132/72 (92) 95 06/05/19 01:06 Nasal Cannula 2.0 06/05/19 00:30 98.0 86 18 102/67 (79) 95 06/05/19 00:16 98.8 89 19 98/61 98 Nasal Cannula 2.0 06/04/19 22:09 96 20 98 06/04/19 22:00 98.8 89 19 98/61 98 Nasal Cannula 2.0 06/04/19 21:51 92 19 98 Room Air 06/04/19 21:34 98.8 95 18 107/73 98 Room Air 06/04/19 21:04 98.8 95 18 107/73 (84) 98 Room Air Height (Feet): 5 Height (Inches): 9.00 Weight (Pounds): 140 Microbiology Date/Time Source Procedure Growth Status 06/05/19 06:30 Sputum Gram Stain - Final Resulted 06/05/19 06:30 Sputum Sputum Culture Pending Resulted 06/05/19 04:45 Nasal Nares - Final Complete 06/05/19 04:45 Nasal Nares - Final Complete 06/04/19 21:30 Nasal Nares - Final Complete 06/04/19 21:30 Nasal Nares - Final Complete Laboratory Tests Test 06/04/19 21:30 06/05/19 05:45 White Blood Count 1.4 K/UL (4.8-10.8) *L Pending Red Blood Count 5.16 M/UL (4.70-6.10) 4.45 M/UL (4.70-6.10) L Hemoglobin 13.6 G/DL (14.2-18.0) L 12.0 G/DL (14.2-18.0) L Hematocrit 42.5 % (42.0-52.0) 35.8 % (42.0-52.0) L Mean Corpuscular Volume 82 FL (80-99) 81 FL (80-99) Mean Corpuscular Hemoglobin 26.3 PG (27.0-31.0) L 26.9 PG (27.0-31.0) L Mean Corpuscular Hemoglobin Concent 31.9 G/DL (32.0-36.0) L 33.5 G/DL (32.0-36.0) Red Cell Distribution Width 14.4 % (11.6-14.8) 12.5 % (11.6-14.8) Platelet Count 265 K/UL (150-450) 251 K/UL (150-450) Mean Platelet Volume 6.1 FL (6.5-10.1) L 5.5 FL (6.5-10.1) L Neutrophils (%) (Auto) % (45.0-75.0) % (45.0-75.0) Lymphocytes (%) (Auto) % (20.0-45.0) % (20.0-45.0) Monocytes (%) (Auto) % (1.0-10.0) % (1.0-10.0) Eosinophils (%) (Auto) % (0.0-3.0) % (0.0-3.0) Basophils (%) (Auto) % (0.0-2.0) % (0.0-2.0) Differential Total Cells Counted 100 100 Neutrophils % (Manual) 55 % (45-75) 71 % (45-75) Lymphocytes % (Manual) 22 % (20-45) 12 % (20-45) L Monocytes % (Manual) 15 % (1-10) H 7 % (1-10) Eosinophils % (Manual) 3 % (0-3) 0 % (0-3) Basophils % (Manual) 0 % (0-2) 0 % (0-2) Band Neutrophils 5 % (0-8) 10 % (0-8) H Platelet Estimate Adequate Adequate Platelet Morphology Normal Normal Red Blood Cell Morphology Normal Urine Color [place] Urine Appearance Clear Urine pH 5 (4.5-8.0) Urine Specific [place] 1.020 (1.005-1.035) Urine Protein 2+ (NEGATIVE) H Urine Glucose (UA) Negative (NEGATIVE) Urine Ketones Negative (NEGATIVE) Urine Blood Negative (NEGATIVE) Urine Nitrite Negative (NEGATIVE) Urine Bilirubin Negative (NEGATIVE) Urine Ictotest Negative (NEGATIVE) Urine Urobilinogen 1 MG/DL (0.0-1.0) H Urine Leukocyte Esterase 1+ (NEGATIVE) H Urine RBC 0-2 /HPF (0 - 0) H Urine WBC 10-15 /HPF (0 - 0) H Urine Squamous Epithelial Cells Occasional /LPF Urine Bacteria Many /HPF (NONE) H Urine Mucus Many /LPF (NONE/OCC) H Sodium Level 144 MMOL/L (136-145) 142 MMOL/L (136-145) Potassium Level 3.7 MMOL/L (3.5-5.1) 4.1 MMOL/L (3.5-5.1) Chloride Level 104 MMOL/L (98-107) 106 MMOL/L (98-107) Carbon Dioxide Level 32 MMOL/L (21-32) 23 MMOL/L (21-32) Anion Gap 8 mmol/L (5-15) 13 mmol/L (5-15) Blood Urea Nitrogen 6 mg/dL (7-18) L 9 mg/dL (7-18) Creatinine 0.9 MG/DL (0.55-1.30) 0.9 MG/DL (0.55-1.30) Estimat Glomerular Filtration Rate > 60 mL/min (>60) > 60 mL/min (>60) Glucose Level 87 MG/DL (74-106) 142 MG/DL (74-106) H Lactic Acid Level 1.30 mmol/L (0.4-2.0) Calcium Level 8.9 MG/DL (8.5-10.1) 8.8 MG/DL (8.5-10.1) Total Bilirubin 0.2 MG/DL (0.2-1.0) 0.2 MG/DL (0.2-1.0) Aspartate Amino Transf (AST/SGOT) 15 U/L (15-37) 15 U/L (15-37) Alanine Aminotransferase (ALT/SGPT) 17 U/L (12-78) 22 U/L (12-78) Alkaline Phosphatase 94 U/L (46-116) 87 U/L (46-116) Lactate Dehydrogenase 301 U/L (81-234) H Total Protein 8.4 G/DL (6.4-8.2) H 8.0 G/DL (6.4-8.2) Albumin 2.6 G/DL (3.4-5.0) L 2.4 G/DL (3.4-5.0) L Globulin 5.8 g/dL 5.6 g/dL Albumin/Globulin Ratio 0.4 (1.0-2.7) L 0.4 (1.0-2.7) L Urine Opiates Screen Negative (NEGATIVE) Urine Barbiturates Screen Negative (NEGATIVE) Phencyclidine (PCP) Screen Negative (NEGATIVE) Urine Amphetamines Screen Negative (NEGATIVE) Urine Benzodiazepines Screen Negative (NEGATIVE) Urine Cocaine Screen Negative (NEGATIVE) Urine Marijuana (THC) Screen Positive (NEGATIVE) H Lymphocytes Pending Hypochromasia 1+ Percent CD3 Cells Pending Absolute CD3 Count Pending Percent CD4 Cells Pending Absolute CD4 Count Pending T-Lymphocyte CD4/CD8 Ratio Pending Percent CD8 Cells Pending Absolute CD8 Count Pending Current Medications Medications (Trade) Dose Ordered Sig/[place] Route PRN Reason Start Time Stop Time Status Last Admin Dose Admin Albuterol/ Ipratropium (Albuterol/ Ipratropium) 3 ml Q6HRT PRN HHN Shortness of Breath 06/05/19 02:00 06/10/19 01:29 Azithromycin 500 mg/Dextrose 275 ml @ 275 mls/hr Q24HRS IV 06/06/19 00:00 06/13/19 00:00 Ceftriaxone Sodium 1 gm/ Dextrose 55 ml @ 110 mls/hr Q24H IVPB 3/11/20 23:00 06/10/19 22:59 Dapsone (Dapsone) 25 mg DAILY ORAL 06/05/19 09:00 06/12/19 08:59 06/05/19 09:43 Dolutegravir Sodium (Tivicay) 50 mg DAILY ORAL 06/05/19 09:00 07/05/19 08:59 UNV Gabapentin (Neurontin) 300 mg THREE TIMES A DAY ORAL 06/05/19 09:00 07/05/19 08:59 06/05/19 18:02 Oxycodone/ Acetaminophen (Percocet 10/325) 1 tab Q4H PRN ORAL For Pain 06/05/19 01:30 06/12/19 01:29 06/05/19 18:01 Trimethoprim/ Sulfamethoxazole (Bactrim-DS) 2 tab EVERY 8 HOURS ORAL 06/05/19 22:00 06/12/19 21:59 Valacyclovir HCl (Valtrex) 1,000 mg Q12HR ORAL 06/05/19 09:00 07/05/19 08:59 06/05/19 09:44 Bora Boyd MD Jun 05, 2019 20:28
--- NOTE | 2019-06-05 20:30 | NUR ---
NURSE NOTES: Patient is awake, alert and verbally responsive. Able to make needs known. Iv site noted. Abdomen is soft. Skin is warm and dry to touch. No complaint of pain or discomfort noted at this time. Respiration is even and unlabored. Explained to the patient that will need to collect urine sample. Educated patient regarding neutropenic precaution. Call light is at bedside. Will continue to monitor.
[2019-06-05] MEDS: Bactrim-DS 1 tab ORAL SCH (22:05)
--- NOTE | 2019-06-05 22:45 | Consultation ---
DATE OF CONSULTATION: 06/05/2019 INFECTIOUS DISEASE CONSULTATION CONSULTING PHYSICIAN: Bora Boyd M.D. ATTENDING PHYSICIAN: Marques Hanson M.D. REFERRING PHYSICIAN: Chad Kaur M.D. REASON FOR CONSULTATION: Possible pneumonia such as community-acquired pneumonia or Pneumocystis pneumonia in a patient with HIV and looks like history of AIDS also. CHIEF COMPLAINT: The patient's chief complaint coming into the hospital is pneumonia, HIV, and AIDS. HISTORY OF PRESENT ILLNESS: This is a very pleasant 38-year-old male with history of HIV, I believe history of AIDS also. He has been noncompliant with medications. He has been on Tivicay per the records. He has also been on dapsone prophylaxis. He has no known drug allergies. Unclear why he is on dapsone since he tolerates Bactrim. The patient presents to [facility] with cough, congestion, and exertional dyspnea. Again, he has been noncompliant with antiviral regimen. Infectious Disease consultation is requested for possible pneumonia including community-acquired pneumonia and rule out Pneumocystis pneumonia with elevated LDH. Pulmonary will also be called to see this patient. The patient also has what looks like a penile rash or lesions and consider Urology evaluation. Case was discussed with Dr. Kaur. The patient is on Rocephin, azithromycin, Diflucan, and Bactrim. He is also on methylprednisolone. REVIEW OF SYSTEMS: CONSTITUTIONAL: Main issue is weight loss, cough, and congestion. No fevers or chills. He does have 40-pound weight loss. No mention of night sweats. RESPIRATORY: Clear sputum production. Exertional dyspnea. CARDIAC: No chest pain. GENITOURINARY: He has penile lesion. GASTROINTESTINAL: No nausea or diarrhea. SKIN: No rash. NEUROLOGICAL: Denies seizures. PAST MEDICAL HISTORY: Includes history of HIV and AIDS, history of asthma also. No diabetes or hypertension mentioned. ALLERGIES: No known drug allergies. SOCIAL HISTORY: Negative for smoking, alcohol, or drug abuse. FAMILY HISTORY: Noncontributory. MEDICATIONS: He is on azithromycin, Rocephin, and Diflucan. He is on Tivicay. He is on dapsone, which I discontinued, as he is already on Bactrim. He is on gabapentin, valacyclovir I believe that is for suppression dose, albuterol treatments, oxycodone, Bactrim, Rocephin, azithromycin, and Diflucan. Outside medications noted and reconciliated. PHYSICAL EXAMINATION: VITAL SIGNS: Temperature is 97.7, pulse rate 72, respiratory rate 20, and blood pressure 103/69. Saturation 95%. GENERAL: Alert and responsive, in no acute distress. HEAD AND NECK: Oral exam, no thrush. Eye exam, no icterus. Normocephalic. Neck is supple. No JVD. HEART: Regular. No gallop or murmur. LUNGS: Few bilateral rhonchi. No definite rales. Very occasional rales and crackles ABDOMEN: Soft. Positive bowel sounds. Nontender. GENITOURINARY: No CVA tenderness. Possible fungal rash and lesions. No urethral discharge noted. SKIN: No rash. MUSCULOSKELETAL: No effusion. Legs are without cellulitis. LINE SITES: Without phlebitis. NEUROLOGIC: Intact and nonfocal. LABORATORY DATA: White count 1.9, hemoglobin 12.0, and platelet count 251,000. White count yesterday was 1.4. Creatinine 0.9. LDH is 301. LFTs noted. Serology is pending. CD4 and viral load are pending. UA had many bacteria, 10 to 15 white cells. Urine culture is pending. Chest x-ray showed no acute disease. ASSESSMENT AND PLAN: 1. The patient has cough with dyspnea, rule out pneumonia such as community-acquired pneumonia versus PJP pneumonia versus Pneumocystis pneumonia. The patient is at risk for opportunistic infections. At this time, the patient on Rocephin and azithromycin to cover community-acquired pneumonia and also Bactrim for PJP or Pneumocystis pneumonia. Also continue Diflucan since the patient is at risk for opportunistic infection to cover possible fungal infection such as Cryptococcus infection. Continue antibiotics and antifungals and check sputum culture, labs, serology, and chest x-ray. Consider pulmonary evaluation and defer for possible need for CT scan of the chest. Monitor LDH also. 2. HIV and AIDS. Check CD4 and viral load. He is on Tivicay as an outpatient. However, this should be in combination with Truvada. I discussed with pharmacy. Once the patient gets his Tivicay from home, which we do not have at [facility], then he can start Truvada with the Tivicay for combination therapy of his human immunodeficiency virus and AIDS. Check CD4 and viral load. The patient is on Bactrim and azithromycin for treatment for pneumonia. This is enough for prophylaxis at this time also. 3. Question penile rash and lesions. Consider Urology evaluation. We will check chlamydia RNA test, gonorrhea RNA test, and RPR. 4. No other significant past medical history such as diabetes or hypertension. 5. History of asthma. 6. No known allergies 7. Social history is negative. 8. Family history is noncontributory. 9. MAR is noted. 10. Case was discussed with RN. 11. Case was discussed with Dr. Kaur. Bora Boyd M.D. DR: ALISTAIR JOB#: [id number] CC: MARU
[2019-06-05] MEDS ORDERED: cefTRIAXone 1 GM in D5W 55 ML IVPB SCH (23:00)
--- NOTE | 2019-06-05 23:00 | Consultation ---
DATE OF CONSULTATION: 06/05/2019 ADDENDUM CONSULTING PHYSICIAN: Bora Boyd M.D. The patient also is severely neutropenic. The patient is on neutropenic precautions at this time. Monitor temperatures closely with neutropenia. Bora Boyd M.D. DR: ALISTAIR JOB#: [id number] CC:
[2019-06-06] VITALS: BP 118/74
[2019-06-06] MEDS ORDERED: Azithromycin 500 MG in D5W 275 ML IV SCH ×2
--- NOTE | 2019-06-06 | NUR ---
NURSE NOTES: IV site removed, per patient. Will reinsert. Call light is at bedside.
[2019-06-06 04:00] VITALS: BP 109/66
[2019-06-06] MEDS: Bactrim-DS 1 tab ORAL SCH ×2 (05:47→14:41)
[2019-06-06 06:14] LABS: HEMATOCRIT 39.3 % (42.0-52.0); MEAN CORPUSCULAR VOLUME 81 FL (80-99); PLATELET COUNT 271 K/UL (150-450); RED BLOOD COUNT 4.86 M/UL (4.70-6.10); RED CELL DISTRIBUTION WIDTH 12.8 % (11.6-14.8); WHITE BLOOD COUNT 3.2 K/UL (4.8-10.8)
--- NOTE | 2019-06-06 06:20 | NUR ---
NURSE NOTES: Given PRN pain medication for generalized pain. Reinserted IV. Will continue to monitor.
[2019-06-06 06:35] LABS: ALANINE AMINOTRANSFERASE 23 U/L (12-78); ALBUMIN 2.5 G/DL (3.4-5.0); ALBUMIN/GLOBULIN RATIO 0.4 (1.0-2.7); ALKALINE PHOSPHATASE 80 U/L (46-116); ANION GAP 10 mmol/L (5-15); ASPARTATE AMINO TRANSFERASE 17 U/L (15-37); BILIRUBIN,TOTAL 0.1 MG/DL (0.2-1.0); BLOOD UREA NITROGEN 17 mg/dL (7-18); CARBON DIOXIDE 26 MMOL/L (21-32); CHLORIDE 105 MMOL/L (98-107); CREATININE 0.9 MG/DL (0.55-1.30); POTASSIUM 4.3 MMOL/L (3.5-5.1); SODIUM 141 MMOL/L (136-145)
--- NOTE | 2019-06-06 07:14 | NUR ---
HAND-OFF: Report given to Yenifer Roca.
[2019-06-06 08:00] VITALS: BP 127/73
--- NOTE | 2019-06-06 08:00 | NUR ---
NURSE NOTES: Patient awake ,alert and oriented,eating breakfast,respirations unlabored.Call light within reach.
[2019-06-06] MEDS ORDERED: HYDROcodone/Acetamin 5/325 tab ORAL PRN (08:45)
--- NOTE | 2019-06-06 08:48 | General Progress Note ---
Assessment/Plan Assessment/Plan: 38 year old man with AIDS, unknown viral load/CD4, asthma, smoker who presented to the ED with 40 lb weight loss and mostly dry cough x 2 months associated with exertional dyspnea. #Cough #Exertional dyspnea #Asthma without exacerbation #AIDS #Weight loss due to anorexia #Leukopenia #Penile lesions -continue inpatient level of care -CD4 count pending -cont IV antibiotics for now -cont Bactrim -stopped Dapsone -ID eval appreciated, started Tivicay -Pulm consult -CT Chest without contrast -smoking cessation advised -calorie count x 24 hours -monitor CBC -VTE PPx Time spent on encounter: 35 mins, >50% on pt counseling, coordination of care. Subjective Date patient seen: Jun 06, 2019 Time patient seen: 07:00 ROS Limited/Unobtainable: No Constitutional: Denies: chills, fever Cardiovascular: Denies: chest pain, edema Respiratory: Reports: cough Gastrointestinal/Abdominal: Reports: abdomen distended Genitourinary: Denies: burning Neurologic/Psychiatric: Denies: depressed Allergies: Coded Allergies: No Known Allergies (Unverified , 02/09/19) Subjective Follow up for cough, possible pneumonia, leukopenia, penile lesions Cough and Leukopenia improved Tolerating antibiotics Objective Last 24 Hour Vital Signs Date Time Temp Pulse Resp B/P (MAP) Pulse Ox O2 Delivery O2 Flow Rate FiO2 06/06/19 07:42 74 18 98 Room Air 21 06/06/19 04:00 98.2 64 18 109/66 (80) 97 06/06/19 00:00 98.4 72 18 118/74 (89) 97 06/05/19 21:00 Room Air 06/05/19 20:00 70 18 97 Room Air 21 06/05/19 20:00 98.1 67 20 105/69 (81) 97 06/05/19 16:00 97.7 72 20 103/69 (80) 95 06/05/19 12:00 98.1 76 17 118/72 (87) 96 06/05/19 09:00 Room Air Intake and Output 06/05/19 06/06/19 19:00 07:00 Intake Total 1280 ml Balance 1280 ml Intake Oral 480 ml Other 800 ml # Voids 2 Laboratory Tests 06/06/19 00:30: Urine Legionella Antigen [Pending], Neisseria gonorrhoeae RNA [Pending] 06/06/19 05:10: White Blood Count 3.2#L, Red Blood Count 4.86, Hemoglobin 13.0L, Hematocrit 39.3L, Mean Corpuscular Volume 81, Mean Corpuscular Hemoglobin 26.8L, Mean Corpuscular Hemoglobin Concent 33.2, Red Cell Distribution Width 12.8, Platelet Count 271, Mean Platelet Volume 5.8L, Neutrophils (%) (Auto) , Lymphocytes (%) ( Auto) , Monocytes (%) (Auto) , Eosinophils (%) (Auto) , Basophils (%) (Auto) , Sodium Level 141, Potassium Level 4.3, Chloride Level 105, Carbon Dioxide Level 26, Anion Gap 10, Blood Urea Nitrogen 17, Creatinine 0.9, Estimat Glomerular Filtration Rate > 60, Glucose Level 77, Calcium Level 9.0, Total Bilirubin 0.1L , Aspartate Amino Transf (AST/SGOT) 17, Alanine Aminotransferase (ALT/SGPT) 23, Alkaline Phosphatase 80, Total Protein 8.3H, Albumin 2.5L, Globulin 5.8, Albumin /Globulin Ratio 0.4L, Rapid Plasma Reagin [Pending], Cryptococcus Antigen [ Pending], HIV-1 RNA (PCR) log10 Value [Pending], HIV-1 RNA Ultraquantitative ( PCR) [Pending], Mycoplasma pneumoniae IgG Antibody [Pending], Mycoplasma pneumoniae IgM Ab Titer [Pending] Height (Feet): 5 Height (Inches): 9.00 Weight (Pounds): 140 General Appearance: no apparent distress, alert Neck: normal alignment, supple Cardiovascular: normal rate, regular rhythm Respiratory/Chest: lungs clear, normal breath sounds, no respiratory distress Abdomen: non tender Chad Alvarado MD Jun 06, 2019 08:48
[2019-06-06] MEDS ORDERED: Fluconazole 100mg tab ORAL SCH (09:00)
--- NOTE | 2019-06-06 09:09 | NUR ---
RADIOLOGY DEPT, CHEST X-RAY DONE.-P.DYE
--- NOTE | 2019-06-06 09:13 | Diagnostic Imaging Report ---
Clinical Indication: Cough Technique: Spiral acquisitions obtained through the chest. No IV contrast utilized, per referring physician request. Multiplanar reconstructions generated. Total dose length product 144 mGycm. CTDIvol(s) 3 mGy. Dose reduction achieved using automated exposure control Comparison: none Findings: Bullae are seen in both upper lobes. Very faint groundglass opacity is seen in the upper lobes bilaterally. No dense consolidation. No infiltrates, effusions, masses, or nodules. Some linear scarring or atelectasis is seen at both lung bases posteriorly. The heart size is normal. No pericardial effusion. No mediastinal or hilar mass or adenopathy. No axillary or chest wall mass or adenopathy. Normal esophagus. The included thyroid is unremarkable Included upper abdominal anatomy is unremarkable. 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 No definite acute pulmonary process The CT scanner at [facility] is accredited by the [employer] and the scans are performed using protocols designed to limit radiation exposure to as low as reasonably achievable to attain images of sufficient resolution adequate for diagnostic evaluation.
--- NOTE | 2019-06-06 10:02 | Diagnostic Imaging Report ---
Indication: Cough Technique: One view of the chest Comparison: 06/04/2019 Findings: Lungs and pleural spaces are clear. Heart size is normal. No significant change Impression: No acute process
[2019-06-06] MEDS: valACYclovir HCL 500mg tab ORAL SCH (10:14)
--- NOTE | 2019-06-06 11:00 | NUR ---
*-* INSURANCE *-* ALL CLINICALS HAVE BEEN FAXED TO: [employer] [place] REF#[id number] CM: LINNEA # [phone] FAX#[phone] REVIEWS/CLINICALS
[2019-06-06 12:00] VITALS: BP 118/74
--- NOTE | 2019-06-06 12:09 | NUR ---
RD ASSESSMENT & RECOMMENDATIONS SEE CARE ACTIVITY FOR COMPLETE ASSESSMENT DAILY ESTIMATED NEEDS: Needs based on AIDS, wt loss 70.5kg 30-35 kcals/kg 0755-8571 total kcals 1-2 g protein/kg 71-141 g total protein 25-30 mL/kg 0882-1697 total fluid mLs NUTRITION DIAGNOSIS: Increased kcal and pro needs r/t infection and wt loss as evidenced by pt w/ HIV/ AIDS, reports severe wt loss of 40#, 22% change, now w/ favorable wt gain of 15# est. CURRENT DIET: Regular PO DIET RECOMMENDATIONS: Continue Regular diet/ rec NEUTROPENIC precautions ADDITIONAL RECOMMENDATIONS: 1) Obtain a standing scale wt 2) Ensure BID + snacks in b/w meals 3) Educated pt on neutropenic food precautions -- 24 Kcal count not completed: per EMR 100% intake of all meals. Pt requesting snacks and added Ensure.
--- NOTE | 2019-06-06 12:34 | NUR ---
CASE MANAGEMENT:REVIEW SI;COUGH. EXERTIONAL DYSPNEA. WEIGHT LOSS D/T ANOREXIA. AIDS. 98.4 82 18 109/66 96% ON RA WBC 3.2 CD4 PENDING IS;DIFLUCAN PO QD AZITHROMYCIN IV Q24 HRS ROCEPHIN IV Q24 HRS BACTRIM DS PO Q8 HRS VALTREX PO Q12HRS DUO NEB HHN Q6 HRT PRN SOB MED SURG STATUS PLAN OF CARE; IV ABX PULMONOLOGY CONSULT CALORIE COUNT [address] DCP;FROM HOME
--- NOTE | 2019-06-06 14:27 | Discharge Summary ---
Discharge Summary Hospital Course Date of Admission Jun 04, 2019 at 23:04 Date of Discharge 06/06/19 Admitting Diagnosis aids, pneumonia HPI Scott Jean is a 38 year old male who was admitted on Jun 04, 2019 at 23:04 for Aids/Pneumonia Consultations ID,Pulm Procedures None Hospital Course 38 year old man with AIDS, unknown viral load/CD4, asthma, smoker who presented to the ED with 40 lb weight loss and mostly dry cough x 2 months associated with exertional dyspnea. Patient admitted to the medical service, CXR and CT chest were negative for infiltrate. For penile lesions, given azithromycin and ceftriaxone to treat GC chlamydia. Seen by ID and Pulm, cleared for discharged. Patient's CD4 was noted to be 6 - started on prophylactic Bactrim, azithromycin + Augmentin for 5 days. Instructed to contact his insurance to to get a new PCP or HIV specialist so he can be started on retroviral therapy FATMATA #Cough #Exertional dyspnea #Asthma without exacerbation #AIDS #Weight loss due to anorexia #Leukopenia #Penile lesions Time spent on preparing discharge 35 mins, >50% on pt counseling, coordination of care. Discharge Condition Upon Discharge: stable Discharge Vital Signs Last Vital Signs Date Time Temp Pulse Resp B/P (MAP) Pulse Ox O2 Delivery O2 Flow Rate FiO2 06/06/19 12:00 98.4 72 18 118/74 (89) 97 06/06/19 09:00 Room Air 06/06/19 07:42 21 06/05/19 01:06 2.0 Discharge Disposition Patient was discharged to home Discharge Diagnoses: (1) AIDS (acquired immune deficiency syndrome) (2) Neutropenia (3) CAP (community acquired pneumonia) Chad Alvarado MD Jun 06, 2019 14:27
--- NOTE | 2019-06-06 15:15 | NUR ---
NURSE NOTES: Patient discharge as ordered patient has personal belongings,discharge instructions given,patient has discharge prescriptions.IV removed,patient accompany down to Lobby,patient took Uber home .
--- NOTE | 2019-06-06 18:59 | Consultation ---
DATE OF CONSULTATION: 06/06/2019 PULMONARY CONSULTATION CONSULTING PHYSICIAN: Hernandez Son M.D. HISTORY OF PRESENT ILLNESS: This is a 38-year-old male with a history of AIDS. He is noncompliant with medications. It is unknown what his most recent imaging studies or outpatient workup has shown. Per review of current data, his CD4 count is pending. He has leukopenia. I have also reviewed his imaging studies. However, I note that a chest CT does not show any significant pathology except for bilateral upper lobe bullous COPD. The patient states he is feeling better since being admitted to the hospital in the last 24 hours. PAST MEDICAL HISTORY: Notable for asthma, HIV positivity, AIDS, medication noncompliance, chronic tobacco, marijuana usage. FAMILY HISTORY: None. REVIEW OF SYSTEMS: Denies any headaches, hematemesis, melena, hematochezia, night sweats, or weight loss. CURRENT MEDICATIONS: Include Valtrex, Bactrim, hydroxyzine, gabapentin, Tivicay, and Dapsone. PHYSICAL EXAMINATION: GENERAL: Reveals a pleasant male. HEENT: Unremarkable. LUNGS: Clear breath sounds bilaterally. ABDOMEN: Soft. EXTREMITIES: There is no edema. LABORATORY TESTING: As discussed above. IMAGING: As discussed above. IMPRESSION: 1. Suspect underlying asthma/COPD. 2. AIDS. 3. Medication noncompliance. DISCUSSION: At this time, his x-ray chest is clear except for evidence of bullous COPD. This may be either due to chronic tobacco/marijuana use or previous PCP. Nevertheless, at this time there is no active process seen in the chest CT to suggest pneumonia. Clinically, he is feeling better too. The patient is keen on discharging. In my opinion, he can be discharged with outpatient followup. Hernandez Son M.D. DR: SREEKANTH JOB#: [id number] CC:
== END 2019-06-06 15:35 | disposition home or self-care (01) | DRG 894 ==
LOC: EMR 21:15 → 4E 23:04 → EDBEDREQ 23:28
DX: J18.9 Pneumonia, unspecified organism (principal); B20 Human immunodeficiency virus [HIV] disease; F17.210 Nicotine dependence, cigarettes, uncomplicated; D70.9 Neutropenia, unspecified; R09.02 Hypoxemia; Z91.14 Patient's other noncompliance with medication regimen; R63.0 Anorexia; N48.89 Other specified disorders of penis; F12.90 Cannabis use, unspecified, uncomplicated; J44.9 Chronic obstructive pulmonary disease, unspecified; Z68.20 Body mass index [BMI] 20.0-20.9, adult
CPT/HCPCS: 36415; 71045; 71250; 80053; 80307; 81003; 82164; 83605; 83615; 85007; 85025; 86360; 86592; 86710; 86738; 87040; 87070; 87081; 87086; 87205; 87449; 87536; 87590; 94664; 96361; 96365; 96368; 96375; 99285; J7030

== ENCOUNTER 2020-03-10 18:57 | Emergency (ER) | payer OTHER ==
[~2020-03-10] VITALS: Ht 175.3 cm; Wt 62.6 kg
[~2020-03-10 18:57] MED LIST changes: +DAPSONE25 MG ORAL; +PERCOCET 10-321 EAC1 ORAL; +TIVICAY50 MG ORAL
--- NOTE | 2020-03-10 19:19 | NUR ---
ED Nurse Note: Patient walked into ED c/o left eye pain onset for 1 day now, reports of hitting his eye while moving a TV. visual acuity 20/20. reports light sensitivity. patient ao4 with no acute distress. ambulatory with steady gait. vital signs stable.
[2020-03-10 19:20] VITALS: BP 110/70
[2020-03-10] MEDS ORDERED: CILOXAN 0.3% O1 DROP RIGHT EYE (19:20)
[2020-03-10 19:30] VITALS: BP 110/70
[2020-03-10] MEDS ORDERED: Fluorescein Strips RIGHT EYE ONE (19:30)
--- NOTE | 2020-03-10 19:30 | NUR ---
ER DISCHARGE NOTE: Patient is cleared to be discharged per ERMD, pt is aox4, on room air, with stable vital signs. pt was given dc and prescription instructions, pt was able to verbalize understanding, pt id band removed. pt is able to ambulate with steady gait. pt took all belongings.
--- NOTE | 2020-03-10 19:30 | Emergency Room Report ---
History of Present Illness General Chief Complaint: Eye Problems Source: Patient Present Illness HPI 39-year-old male here with left eye injury. Patient says that he was moving a television yesterday and he says that the corner of the TV hit his left eye. He has been suffering from eye pain ever since. No other injuries. Has not take any medication for the pain. Allergies: Coded Allergies: No Known Allergies (Unverified , 02/09/19) COVID-19 Screening Contact w/high risk pt: No Experienced COVID-19 symptoms?: No COVID-19 Testing performed [employer]: Yes - january 2020 COVID-19 Screening: Negative COVID-19 COVID-19 Testing Source: unk Nursing Documentation-PMH Past Medical History: No History, Except For Hx Cardiac Problems: No Hx Asthma: Yes Hx Cancer: No Hx Gastrointestinal Problems: No Hx Neurological Problems: Yes Hx Seizures: Yes - per patient: he has hx of seizure Review of Systems All Other Systems: negative except mentioned in HPI Physical Exam Vital Signs Date Time Temp Pulse Resp B/P (MAP) Pulse Ox O2 Delivery O2 Flow Rate FiO2 03/10/20 18:59 97.9 89 18 110/70 (83) 99 Room Air Sp02 EP Interpretation: reviewed, normal General Appearance: no apparent distress, alert, non-toxic Head: normocephalic, atraumatic Eyes: bilateral eye normal inspection, bilateral eye PERRL, bilateral eye other - Very small punctate corneal abrasion at the 3 o'clock position ENT: hearing grossly normal, normal pharynx, no angioedema, normal voice Neck: full range of motion, supple/symm/no masses Respiratory: chest non-tender, lungs clear, normal breath sounds, speaking full sentences Cardiovascular #1: regular rate, rhythm, no edema Cardiovascular #2: 2+ carotid (R), 2+ carotid (L), 2+ radial (R), 2+ radial (L), 2+ dorsalis pedis (R), 2+ dorsalis pedis (L) Gastrointestinal: normal bowel sounds, non tender, soft, non-distended, no guarding, no rebound Rectal: deferred Genitourinary: normal inspection, no CVA tenderness Musculoskeletal: back normal, normal range of motion, gait/station normal, non- tender Neurologic: alert, motor strength/tone normal, oriented x3, sensory intact, responsive, speech normal Psychiatric: judgement/insight normal, memory normal, mood/affect normal, no suicidal/homicidal ideation Lymphatic: no adenopathy Medical Decision Making Diagnostic Impression: Primary Impression: Corneal abrasion ER Course 39-year-old male here with left eye injury. Patient was hemodynamically stable and had normal neurologic examination. A tetracaine drop was placed in the patient's left eye with complete resolution of his symptoms. He had a fluorescein stain performed which revealed a small corneal abrasion in his left eye. He was given a prescription for ciprofloxacin eyedrops to use for 5 days. Told him back to the emergency department worsening symptoms. He expressed understanding and was discharged. Last Vital Signs Date Time Temp Pulse Resp B/P (MAP) Pulse Ox O2 Delivery O2 Flow Rate FiO2 03/10/20 19:20 97.9 72 18 110/70 99 Room Air Disposition: HOME, SELF-CARE Condition: Stable Scripts Ciprofloxacin (Ciprofloxacin HCl) 2.5 Ml Drops 2 DROP RIGHT EYE Q4H for 5 Days, ML Prov: Martínez Sanchez M.D. 03/10/20 Referrals: [facility] Patient Instructions: Corneal Abrasion Martínez Sanchez M.D. Mar 10, 2020 19:30
== END 2020-03-10 19:30 | disposition home or self-care (01) ==
LOC: EMR 19:30
DX: S05.02XA Injury of conjunctiva and corneal abrasion without foreign body, left eye, initial encounter (principal); J45.909 Unspecified asthma, uncomplicated; W22.8XXA Striking against or struck by other objects, initial encounter; Y93.89 Activity, other specified; Y92.9 Unspecified place or not applicable
CPT/HCPCS: 99282